=== PATIENT | male | born 1985 | race Caucasian/White ===

== ENCOUNTER 2022-05-20 08:38 | Day surgery (SDC) | payer BC ==
[~2022-05-20 08:38] MED LIST: ALPRAZolam 0.5 MG TAB PO PRN
[2022-05-20 09:36] LABS: Mean Platelet Volume 8.6; Platelet Count 232 k/uL (150-450)
[2022-05-20 09:42] VITALS: RESP 18; TEMP 98.8
[2022-05-20 09:50] LABS: Prothrombin Time 11.1 sec (9.0-12.0)
[2022-05-20] MEDS: HYDROmorphone 0.5 MG/0.5 ML SYRINGE IVP PRN ×2 (10:13→10:41)
[2022-05-20] MEDS ORDERED: HYDROcodone/APAP 5-325MG 1 EACH TAB PO PRN (10:41)
--- NOTE | 2022-05-20 11:56 | CT ---
EXAMINATION TYPE: CT biopsy liver DATE OF EXAM: 05/20/2022 COMPARISON: NONE HISTORY: Elevated liver enzymes CT DLP: 1272 mGycm The procedure was explained to the patient. The risks, complications, benefits, and alternatives wer e discussed and any questions were answered. Informed consent was obtained. Patient was placed supi ne on the CT table and prepped and draped in the usual sterile fashion. All elements of maximal barrier and sterile technique utilized. Utilizing CT guidance, an 18 gauge core biopsy needle access into the right lobe of the liver was ac hieved and a single 18 gauge core sample was obtained. The patient was stable throughout the procedu re and remained stable upon discharge. IMPRESSION: 1. Successful 18 gauge core biopsy of the liver.
[2022-05-20 14:10] VITALS: BP 122/65; PULSE 65
[2022-05-20 16:31] LABS: % Iron Saturation 47.85 (15.00-50.00)
== END 2022-05-20 14:23 | disposition home or self-care (01) ==
LOC: RADPROMAIN 08:38
PROVIDERS: ATTEND Internal Medicine Gastroenterology
DX: K75.81 Nonalcoholic steatohepatitis (NASH) (principal); F17.200 Nicotine dependence, unspecified, uncomplicated; Z79.899 Other long term (current) drug therapy
CPT/HCPCS: 82728; 83540; 83550; 85049; 85610; 88313; 88307; 36415; 47000; 77012; J1170

== ENCOUNTER → 2022-06-20 | Outpatient (CLI) | payer BC ==
[~2022-06-20] MED LIST changes: -ALPRAZolam 0.5 MG TAB PO PRN; +SODIUM CHLORIDE 0.9% 500 ML 500 ML in EMPTY BAG 1 BAG IV PRN
[2022-06-20 07:39] VITALS: RESP 16; TEMP 98.3
[2022-06-20 08:19] LABS: HCT 43.5 % (39.0-53.0); HGB 15.6 gm/dL (13.0-17.5); MCH 34.1 pg (25.0-35.0); MCHC 35.9 g/dL (31.0-37.0); Mean Platelet Volume 8.6; Platelet Count 195 k/uL (150-450); RBC 4.58 m/uL (4.30-5.90); RDW 12.2 % (11.5-15.5); WBC 5.2 k/uL (3.8-10.6)
[2022-06-20 08:47] VITALS: BP 131/81; PULSE 81
== END ==
LOC: PROCWHC3 07:17
PROVIDERS: ATTEND Internal Medicine Gastroenterology
DX: E83.119 Hemochromatosis, unspecified (principal)
CPT/HCPCS: 36415; 85027; 99195

== ENCOUNTER → 2022-08-22 | Outpatient (CLI) | payer BC ==
[2022-08-22 13:02] VITALS: RESP 16; TEMP 98.3
[2022-08-22 13:16] LABS: HCT 41.6 % (39.0-53.0); HGB 14.5 gm/dL (13.0-17.5); MCHC 34.8 g/dL (31.0-37.0); MCV 91.8 fL (80.0-100.0); Mean Platelet Volume 8.8; Platelet Count 214 k/uL (150-450); RBC 4.53 m/uL (4.30-5.90); RDW 11.4 % (11.5-15.5); WBC 6.2 k/uL (3.8-10.6)
[2022-08-22 13:46] VITALS: BP 129/79; PULSE 82
== END ==
LOC: PROCWHC3 12:49
PROVIDERS: ATTEND Internal Medicine Gastroenterology
DX: E83.119 Hemochromatosis, unspecified (principal)
CPT/HCPCS: 36415; 85027; 99195

== ENCOUNTER → 2022-10-08 | Outpatient (CLI) | payer BC ==
[2022-10-08 11:24] VITALS: RESP 15; TEMP 98.1
[2022-10-08 11:33] LABS: HCT 41.3 % (39.0-53.0); HGB 15.2 gm/dL (13.0-17.5); MCH 33.1 pg (25.0-35.0); MCHC 36.8 g/dL (31.0-37.0); Mean Platelet Volume 8.5; Platelet Count 226 k/uL (150-450); RBC 4.59 m/uL (4.30-5.90); RDW 12.4 % (11.5-15.5); WBC 6.5 k/uL (3.8-10.6)
[2022-10-08 12:15] VITALS: BP 128/76; PULSE 82
== END | disposition home or self-care (01) ==
LOC: PROCWHC3 11:13
PROVIDERS: ATTEND Internal Medicine Gastroenterology
DX: E83.119 Hemochromatosis, unspecified (principal)
CPT/HCPCS: 36415; 85027; 99195

== ENCOUNTER → 2022-12-03 | Outpatient (CLI) | payer BC ==
[2022-12-03 12:48] VITALS: RESP 16; TEMP 98.5
[2022-12-03 12:55] LABS: HCT 40.8 % (39.0-53.0); HGB 14.8 gm/dL (13.0-17.5); MCH 33.1 pg (25.0-35.0); MCHC 36.1 g/dL (31.0-37.0); MCV 91.6 fL (80.0-100.0); Mean Platelet Volume 8.4; Platelet Count 213 k/uL (150-450); RBC 4.46 m/uL (4.30-5.90); RDW 12.3 % (11.5-15.5); WBC 6.4 k/uL (3.8-10.6)
[2022-12-03 13:34] VITALS: BP 136/78; PULSE 80
== END ==
LOC: PROCWHC3 12:30
PROVIDERS: ATTEND Internal Medicine Gastroenterology
DX: E83.119 Hemochromatosis, unspecified (principal)
CPT/HCPCS: 36415; 85027; 99195

== ENCOUNTER → 2023-02-06 | Outpatient (CLI) | payer BC ==
[2023-02-06 12:43] VITALS: RESP 16; TEMP 97.9
[2023-02-06 12:55] LABS: HCT 41.2 % (39.0-53.0); HGB 14.5 gm/dL (13.0-17.5); MCH 32.2 pg (25.0-35.0); MCHC 35.2 g/dL (31.0-37.0); MCV 91.4 fL (80.0-100.0); Platelet Count 210 k/uL (150-450); RBC 4.51 m/uL (4.30-5.90); RDW 11.7 % (11.5-15.5); WBC 6.1 k/uL (3.8-10.6)
[2023-02-06 13:26] VITALS: BP 133/83; PULSE 97
== END ==
LOC: PROCWHC3 12:18
PROVIDERS: ATTEND Internal Medicine Gastroenterology
DX: E83.119 Hemochromatosis, unspecified (principal)
CPT/HCPCS: 36415; 85027; 99195

== ENCOUNTER → 2023-04-16 | Outpatient (CLI) | payer BC ==
[2023-04-16 08:22] VITALS: BP 148/88; PULSE 86; RESP 16; TEMP 98
[2023-04-16 08:23] LABS: HCT 42.2 % (39.0-53.0); HGB 15.2 gm/dL (13.0-17.5); MCH 33.2 pg (25.0-35.0); MCV 92.1 fL (80.0-100.0); Mean Platelet Volume 8.1; Platelet Count 211 k/uL (150-450); RBC 4.58 m/uL (4.30-5.90); RDW 11.8 % (11.5-15.5); WBC 5.2 k/uL (3.8-10.6)
== END ==
LOC: PROCWHC3 08:01
PROVIDERS: ATTEND Internal Medicine Gastroenterology
DX: E83.119 Hemochromatosis, unspecified (principal)
CPT/HCPCS: 36415; 85027; 99195

== ENCOUNTER → 2023-06-19 | Outpatient (CLI) | payer BC ==
[2023-06-19 13:08] VITALS: TEMP 98.2
[2023-06-19 13:18] LABS: Basophils # (A) 0.1 k/uL (0-0.2); Basophils % (A) 0 %; Eosinophils # (A) 0.3 k/uL (0-0.7); Eosinophils % (A) 2 %; HCT 41.9 % (39.0-53.0); HGB 15.4 gm/dL (13.0-17.5); Lymphocytes # (A) 3.9 k/uL (1.0-4.8); Lymphocytes % (A) 29 %; MCH 33.8 pg (25.0-35.0); MCHC 36.8 g/dL (31.0-37.0); Mean Platelet Volume 8.6; Monocytes # (A) 0.9 k/uL (0-1.0); Monocytes % (A) 6 %; Neutrophils # (A) 8.4 k/uL (1.3-7.7); Neutrophils % (A) 61 %; Platelet Count 205 k/uL (150-450); RBC 4.55 m/uL (4.30-5.90); RDW 12.1 % (11.5-15.5); WBC 13.7 k/uL (3.8-10.6)
[2023-06-19 13:48] VITALS: BP 129/80; PULSE 84; RESP 16
== END ==
LOC: PROCWHC3 12:55
PROVIDERS: ATTEND Internal Medicine Gastroenterology
DX: E83.119 Hemochromatosis, unspecified (principal)
CPT/HCPCS: 36415; 85025; 99195

== ENCOUNTER → 2023-10-23 | Outpatient (CLI) | payer BC ==
[2023-10-23 13:47] LABS: HCT 41.9 % (39.0-53.0); MCH 32.7 pg (25.0-35.0); MCHC 35.7 g/dL (31.0-37.0); MCV 91.4 fL (80.0-100.0); Mean Platelet Volume 8.3; Platelet Count 229 k/uL (150-450); RBC 4.59 m/uL (4.30-5.90); RDW 12.1 % (11.5-15.5); WBC 7.3 k/uL (3.8-10.6)
[2023-10-23 13:57] VITALS: RESP 16; TEMP 98.3
[2023-10-23 14:32] VITALS: BP 131/91; PULSE 86
== END ==
LOC: PROCWHC3 13:17
PROVIDERS: ATTEND Internal Medicine Gastroenterology
DX: E83.119 Hemochromatosis, unspecified (principal)
CPT/HCPCS: 36415; 85027; 99195

== ENCOUNTER → 2023-11-07 | Outpatient (CLI) | payer BC ==
[2023-11-08 12:55] LABS: % Iron Saturation 32.99 (15.00-50.00); BUN/Creat Ratio 17.33 Ratio (12.00-20.00); Blood Urea Nitrogen 15.6 mg/dL (9.0-27.0); Chloride 104 mmol/L (96-109); Glucose 95 mg/dL (70-110); Iron 95 UG/DL (65-175); Potassium 4.5 mmol/L (3.5-5.5); Sodium 142 mmol/L (135-145); Total Iron Binding Capacity 288 UG/DL (228-460)
[2023-11-08 12:56] LABS: ALT 132 U/L (10-49); AST 39 U/L (14-35); Albumin 4.8 g/dL (3.8-4.9); Albumin/Globulin Ratio 2.29 Ratio (1.60-3.17); Alkaline Phosphatase 62 U/L (41-126); Calcium 10.1 mg/dL (8.7-10.3); Globulin 2.1 g/dL (1.6-3.3); Total Bilirubin 1.2 mg/dL (0.3-1.2); Total Protein 6.9 g/dL (6.2-8.2)
== END | disposition home or self-care (01) ==
LOC: LABWHC1 10:08
PROVIDERS: ATTEND Internal Medicine Gastroenterology
DX: E83.119 Hemochromatosis, unspecified (principal)
CPT/HCPCS: 36415; 80053; 82728; 83540; 83550

== ENCOUNTER → 2024-01-01 | Outpatient (CLI) | payer BC ==
[2024-01-01 14:03] LABS: HCT 42.9 % (39.0-53.0); HGB 15.1 gm/dL (13.0-17.5); MCH 32.4 pg (25.0-35.0); MCHC 35.3 g/dL (31.0-37.0); MCV 91.7 fL (80.0-100.0); Mean Platelet Volume 8.3; Platelet Count 226 k/uL (150-450); RBC 4.67 m/uL (4.30-5.90); RDW 11.9 % (11.5-15.5); WBC 7.1 k/uL (3.8-10.6)
[2024-01-01 14:07] VITALS: RESP 16; TEMP 98.4
[2024-01-01 15:07] VITALS: BP 126/78; PULSE 80
== END ==
LOC: PROCWHC3 13:14
PROVIDERS: ATTEND Internal Medicine Gastroenterology
DX: E83.119 Hemochromatosis, unspecified (principal)
CPT/HCPCS: 36415; 85027; 99195

== ENCOUNTER → 2024-03-30 | Outpatient (CLI) | payer BC ==
[2024-03-30 12:23] LABS: HCT 40.8 % (39.0-53.0); HGB 14.2 gm/dL (13.0-17.5); MCH 31.7 pg (25.0-35.0); MCHC 34.8 g/dL (31.0-37.0); MCV 91.1 fL (80.0-100.0); Mean Platelet Volume 8.5; Platelet Count 237 k/uL (150-450); RBC 4.48 m/uL (4.30-5.90); RDW 12.6 % (11.5-15.5); WBC 5.6 k/uL (3.8-10.6)
[2024-03-30 13:41] VITALS: BP 136/83; PULSE 83; RESP 16; TEMP 98.3
== END ==
LOC: PROCWHC3 11:47
PROVIDERS: ATTEND Internal Medicine Gastroenterology
DX: E83.119 Hemochromatosis, unspecified (principal)
CPT/HCPCS: 36415; 85027; 99195

== ENCOUNTER → 2024-05-27 | Outpatient (CLI) | payer BC ==
[2024-05-27 15:49] LABS: % Iron Saturation 35.05 (15.00-50.00); ALT 94 U/L (10-49); AST 33 U/L (14-35); Albumin 4.6 g/dL (3.8-4.9); Albumin/Globulin Ratio 2.19 Ratio (1.60-3.17); Alkaline Phosphatase 58 U/L (41-126); BUN/Creat Ratio 12.67 Ratio (12.00-20.00); Blood Urea Nitrogen 11.4 mg/dL (9.0-27.0); Calcium 9.5 mg/dL (8.7-10.3); Carbon Dioxide 23.7 mmol/L (21.6-31.8); Chloride 105 mmol/L (96-109); Ferritin 87.9 ng/mL (22.0-322.0); Globulin 2.1 g/dL (1.6-3.3); Glucose 90 mg/dL (70-110); Iron 102 UG/DL (65-175); Potassium 4.7 mmol/L (3.5-5.5); Sodium 141 mmol/L (135-145); Total Bilirubin 1.6 mg/dL (0.3-1.2); Total Iron Binding Capacity 291 UG/DL (228-460); Total Protein 6.7 g/dL (6.2-8.2)
== END | disposition home or self-care (01) ==
LOC: LABWHC1 11:02
PROVIDERS: ATTEND Internal Medicine Gastroenterology
DX: E83.119 Hemochromatosis, unspecified (principal)
CPT/HCPCS: 36415; 80053; 82728; 83540; 83550

== ENCOUNTER → 2024-07-20 | Outpatient (CLI) | payer BC ==
[2024-07-20 13:35] VITALS: RESP 16; TEMP 98.4
[2024-07-20 13:35] LABS: HGB 14.2 gm/dL (13.0-17.5); MCH 32.5 pg (25.0-35.0); MCHC 35.4 g/dL (31.0-37.0); MCV 91.6 fL (80.0-100.0); Mean Platelet Volume 8.4; Platelet Count 222 k/uL (150-450); RBC 4.37 m/uL (4.30-5.90); RDW 12.2 % (11.5-15.5); WBC 6.2 k/uL (3.8-10.6)
[2024-07-20 14:03] VITALS: BP 125/66; PULSE 70
== END ==
LOC: PROCWHC3 13:17
PROVIDERS: ATTEND Internal Medicine Gastroenterology
DX: E83.119 Hemochromatosis, unspecified (principal)
CPT/HCPCS: 36415; 85027; 99195

== ENCOUNTER → 2024-10-19 | Outpatient (CLI) | payer BC ==
[~2024-10-19] MED LIST changes: +SODIUM CHLORIDE 0.9% 250 ML in EMPTY BAG 1 BAG IV PRN
[2024-10-19 13:02] VITALS: RESP 16; TEMP 97.9
[2024-10-19 13:05] LABS: HCT 44.5 % (39.0-53.0); HGB 15.5 gm/dL (13.0-17.5); MCH 32.3 pg (25.0-35.0); MCHC 34.8 g/dL (31.0-37.0); MCV 92.7 fL (80.0-100.0); Mean Platelet Volume 7.8; Platelet Count 239 k/uL (150-450); RDW 11.9 % (11.5-15.5); WBC 7.4 k/uL (3.8-10.6)
[2024-10-19 13:44] VITALS: BP 144/84; PULSE 80
== END ==
LOC: PROCWHC3 12:46
PROVIDERS: ATTEND Internal Medicine Gastroenterology
DX: E83.119 Hemochromatosis, unspecified (principal)
CPT/HCPCS: 36415; 85027; 99195

== ENCOUNTER → 2025-01-19 | Outpatient (CLI) | payer BC ==
[2025-01-19 13:01] VITALS: RESP 16; TEMP 97.7
[2025-01-19 13:27] LABS: HCT 44.6 % (39.0-53.0); HGB 15.3 gm/dL (13.0-17.5); MCH 31.6 pg (25.0-35.0); MCHC 34.2 g/dL (31.0-37.0); MCV 92.4 fL (80.0-100.0); Mean Platelet Volume 8.6; Platelet Count 274 k/uL (150-450); RBC 4.83 m/uL (4.30-5.90); RDW 13.1 % (11.5-15.5); WBC 7.1 k/uL (3.8-10.6)
[2025-01-19 13:43] VITALS: BP 123/79; PULSE 97
== END ==
LOC: PROCWHC3 12:51
PROVIDERS: ATTEND Nurse Practitioner Family
DX: E83.119 Hemochromatosis, unspecified (principal)
CPT/HCPCS: 36415; 85027; 99195

== ENCOUNTER → 2025-05-09 | Outpatient (CLI) | payer BC ==
[2025-05-09 15:07] LABS: Basophils # (A) 0.05 X 10*3/uL (0.00-0.10); Basophils % (A) 0.6 %; Eosinophils % (A) 3.8 %; HCT 43.5 % (39.6-50.0); HGB 14.9 g/dL (13.0-17.0); Lymphocytes # (A) 2.14 X 10*3/uL (0.90-5.00); MCH 31.2 pg (27.0-32.0); MCHC 34.3 g/dL (32.0-37.0); MCV 91.2 FL (80.0-97.0); Mean Platelet Volume 11.4 FL (9.5-12.2); Monocytes # (A) 0.54 X 10*3/uL (0.20-1.00); Monocytes % (A) 6.8 %; NRBC Per 100 WBC 0 X 10*3/uL (0.00-0.01); Neutrophils # (A) 4.83 X 10*3/uL (1.80-7.70); Platelet Count 265 X 10*3/uL (140-440); RBC 4.77 X 10*6/uL (4.40-5.60); RDW 12.2 % (11.5-14.5); WBC 7.92 X 10*3/uL (4.50-10.00)
[2025-05-09 15:19] LABS: Erythrocyte Sedimentation Rate 6 mm/Hr (0-15)
[2025-05-09 15:47] LABS: ALT 68 U/L (10-49); AST 29 U/L (14-35); Albumin 4.6 g/dL (3.8-4.9); Albumin/Globulin Ratio 1.77 Ratio (1.60-3.17); Alkaline Phosphatase 65 U/L (41-126); BUN/Creat Ratio 19.44 Ratio (12.00-20.00); Blood Urea Nitrogen 17.5 mg/dL (9.0-27.0); C Reactive Protein <0.30 mg/dL (0.00-0.80); Calcium 9.5 mg/dL (8.7-10.3); Carbon Dioxide 23.7 mmol/L (21.6-31.8); Chloride 103 mmol/L (96-109); Creatine Kinase 75 U/L (35-257); Globulin 2.6 g/dL (1.6-3.3); Glucose 144 mg/dL (70-110); Magnesium 1.7 mg/dL (1.5-2.4); Potassium 4.2 mmol/L (3.5-5.5); Rheumatoid Factor, Qnt <15 IU/mL (0-15); Sodium 139 mmol/L (135-145); Total Bilirubin 1.2 mg/dL (0.3-1.2); Total Protein 7.2 g/dL (6.2-8.2); Uric Acid 5.5 mg/dL (3.7-8.7)
== END | disposition home or self-care (01) ==
LOC: LABWHC1 11:43
PROVIDERS: ATTEND Family Medicine
DX: M25.50 Pain in unspecified joint (principal); M62.830 Muscle spasm of back
CPT/HCPCS: 36415; 80053; 82550; 83735; 84550; 85025; 85652; 86038; 86140; 86431; 86618